=== PATIENT | female | born 1960 | race Caucasian/White ===

== ENCOUNTER 2019-03-12 16:48 | Emergency (ER) | payer OTHER ==
[~2019-03-12] VITALS: Ht 170.2 cm; Wt 58.1 kg
== END 2019-03-12 23:03 | disposition home or self-care (01) ==
LOC: ER 16:48
DX: B33.8 Other specified viral diseases (principal); B96.0 Mycoplasma pneumoniae [M. pneumoniae] as the cause of diseases classified elsewhere; E86.0 Dehydration

== ENCOUNTER → 2020-05-08 | Emergency (ER) | payer OTHER ==
[~2020-05-08] VITALS: Ht 170.2 cm; Wt 57.6 kg
== END | disposition home or self-care (01) ==
LOC: ER 11:32
DX: B34.9 Viral infection, unspecified (principal); Z20.822 Contact with and (suspected) exposure to COVID-19

== ENCOUNTER 2020-11-24 14:13 | Emergency (ER) | payer OTHER ==
[~2020-11-24] VITALS: Ht 170.2 cm; Wt 58.5 kg
== END 2020-11-24 19:33 | disposition home or self-care (01) ==
LOC: ER 14:13
DX: R52 Pain, unspecified (principal); Z20.822 Contact with and (suspected) exposure to COVID-19

== ENCOUNTER 2021-04-03 10:06 | Emergency (ER) | payer OTHER ==
[~2021-04-03] VITALS: Ht 170.2 cm; Wt 57.6 kg
[2021-04-03] MEDS ORDERED: DICLOFENAC POTA50 MG PO (11:15)
[2021-04-03] MEDS ORDERED: CHLORZOXAZONE500 MG PO (11:15)
== END 2021-04-03 11:18 ==
LOC: ER 10:06
DX: S70.02XA Contusion of left hip, initial encounter (principal); W07.XXXA Fall from chair, initial encounter; Y92.239 Unspecified place in hospital as the place of occurrence of the external cause

== ENCOUNTER 2021-05-30 16:30 | Emergency (ER) | payer OTHER ==
[~2021-05-30] VITALS: Ht 170.2 cm; Wt 59.0 kg
[~2021-05-30 16:30] MED LIST: ACETAMINOPHEN500 M2; CHLORZOXAZONE500 MG PO; DICLOFENAC POTA50 MG PO
== END 2021-05-30 22:11 | disposition home or self-care (01) ==
LOC: ER 16:30
DX: R41.82 Altered mental status, unspecified (principal); K57.30 Diverticulosis of large intestine without perforation or abscess without bleeding